=== PATIENT | female | born 2005 | race Caucasian/White ===

== ENCOUNTER 2024-10-23 14:03 | Inpatient (IN) | payer SELFPAY ==
[2024-10-23] VITALS (15 sets, daily range): BP systolic 139–151; BP diastolic 80–99; PULSE 71–108; RESP 14–20; TEMP 36.5–36.9; O2SAT 98–100; BMI 35.7
[2024-10-23 13:22] LABS: Protein:Creat Ratio 402 mg/g CRE (0-200)
[2024-10-23 13:30] LABS: Hematocrit 31.6 % (37-47); Hemoglobin 10.6 g/dL (12.0-15.0); Mean Corp Hgb Conc 33.5 g/dL (32-36); Mean Corpuscular Hgb 28.6 pg (27.0-32.0); Mean Corpuscular Volume 85.4 fL (81-99); Mean Platelet Vol. 10.4 fl (6.2-12.0); Platelet Count 295 K/mm3 (150-450); RBC Distribution Width CV 12.9 % (11.6-14.6); RBC Distribution Width SD 38.5 fl (35.1-43.9); White Blood Count 9.8 K/mm3 (4.4-11.0)
[2024-10-23 13:32] LABS: AST(SGOT) 15 U/L (15-37); Alanine Aminotransfer ALT/SGPT 21 U/L (13-56); Creatinine, Serum 0.55 mg/dL (0.55-1.02); EST Glomerular Filtration Rate 147 mL/min (>60); Est Glom Filt Rate - Afr Amer 178 mL/min (>60); Estimated Creatinine Clearance 186.97 ml/min; Uric Acid 3.5 mg/dL (2.6-6.0)
[2024-10-23 15:09] LABS: Amphetamine Urine NEGATIVE (<1000 ng/mL); Barbiturate Urine VISTA NEGATIVE (< 200 ng/mL); Benzodiazepine Urine VISTA NEGATIVE (< 200 ng/mL); Cocaine Urine VISTA NEGATIVE (< 300 ng/mL); Ecstacy Urine VISTA NEGATIVE (< 500 ng/mL); Methadone Urine VISTA NEGATIVE (< 300 ng/mL); PCP Urine VISTA NEGATIVE (< 25 ng/mL); THC Urine VISTA NEGATIVE (< 50 ng/mL); Vista UDS pH Range 6
[2024-10-23 15:26] LABS: Syphilis Antibodies Non-reactive
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
[2024-10-23] MEDS: miSOPROStol 25 MCG TABLET PO ×3 (15:36→23:34)
[2024-10-24] VITALS (66 sets, daily range): BP systolic 103–145; BP diastolic 51–88; PULSE 60–171; RESP 14–18; TEMP 36.2–36.8; O2SAT 81–100
[2024-10-24] MEDS: miSOPROStol 25 MCG TABLET PO (03:44)
[2024-10-24] MEDS: 0.9% Saline Lock 10 ML Syringe IV (06:09)
[2024-10-24] MEDS: Levothyroxine 100 MCG Tablet PO (06:09)
[2024-10-24] MEDS: 0.9% Normal Saline Single 100 ML IV.SOLN. INTRA-UTER (06:37)
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
[2024-10-24] MEDS: Lactated Ringers 1,000 ML 999 ML IV ×2 (08:33→14:43)
[2024-10-24] MEDS: Oxytocin 15 Units/NS 250ml 15 UNITS/250 ML IV.SOLN 2 UNITS IV (09:12)
[2024-10-24] MEDS: fentaNYL-bupivacaine (epidural) 100 ML BAG EPIDURAL ×2 (15:15→19:32)
[2024-10-24] MEDS: Lactated Ringers 1,000 ML 200 ML IV ×2 (16:28→21:22)
[2024-10-24] MEDS: LACTATED RINGERS 500 ML 999 ML IV (21:58)
[2024-10-24] MEDS: Amnioinfusion- 0.9% NS 1,000 ML IV.SOLN. 1000 ML INTRA-UTER (22:54)
[2024-10-25] VITALS (51 sets, daily range): BP systolic 107–144; BP diastolic 52–76; PULSE 91–129; RESP 16–28; TEMP 36.6–38.1; O2SAT 96–100
[2024-10-25] MEDS: fentaNYL-bupivacaine (epidural) 100 ML BAG EPIDURAL (00:09)
[2024-10-25] MEDS: Lactated Ringers 1,000 ML 200 ML IV (02:50)
[2024-10-25] MEDS: Acetaminophen 500 MG Tablet PO (03:59)
--- NOTE | 2024-10-25 06:07 | OB.VAGDELI_ITS ---
Assessment & Plan (1) Second degree laceration of perineum, delivered, current hospitalization: (2) Vacuum extractor delivery, delivered: (3) Gestational HTN: (4) 37 or more weeks gestation of : Maternal Data Information MAGY Calculator Estimated Delivery Date Method Current WG Current Estimate 11/11/24 Manual 37w 4d Final MAGY: 11/11/24 Gestational age: 37 4/7 Vaginal Delivery Maternal Presentation Maternal Presentation: Medically Indicated Induction Type of Induction: Pitocin, Moralez Bulb, Amniotomy and Cytotec Medical Reason for Induction: Gestational Hypertension Vaginal Delivery Information Procedure Performed: Vacuum Assisted Vaginal Delivery (ooutlet) Station at time of placement: +3 Number of vacuum pulls: 1 Number of vacuum pop offs: 0 Surgeon/Practitioner: Teena Black Date of Procedure: 10/25/24 Pre-Procedure Diagnosis: maternal exhaustion, labor Post-Procedure Diagnosis: same Type of anesthesia: Epidural Drain(s): Other Other drain details: moralez Estimated Blood Loss: 400 Time of Delivery: 05:43 Findings Description of procedure: The patient had been pushing for approximately 3 hours and 15 minutes. Position was ANURADHA. Pelvis was clinically adequate. Epidural was adequate. Moralez catheter was then placed. When she pushed she labia 3 cm and the skull was on the pelvic floor. I discussed with the patient response and alternatives to trial of vacuum-assisted vaginal delivery. Patient desired to proceed. She was very exhausted and losing strength with pushing. The vacuum was placed on the flexion point and the vacuum created 550 mmHg. I pulled with 1 contraction to and there were no pop offs and the vacuum was removed. A vigorous female infant was delivered ANURADHA over a second-degree pe rineal laceration. The remainder the infant was delivered with maternal pushing and gentle traction only in less than 15 seconds. The Pitocin infusion was initiated for active management of the third stage. The cord was clamped and cut after cord pulsations ceased. The infant was attended to by the waiting nursing staff. The placenta was delivered spontaneously and intact. The cervix and vagina were intact. The second-degree perineal laceration was repaired with 3-0 Vicryl suture in a running standard fashion. Sponge and needle counts were correct. A vaginal sweep was completed by me. Presentation: ANURADHA Amniotic Membrane Rupture Type: Artificial Amniotic Fluid Description: Clear (with terminal meconium at delivery) Placental Delivery Description: Spontaneous Placenta Disposition: [facility] Specimen collected: No Cord Vessel Description: 3 Vessels Cord Entanglement: None Cord Gases: ABG and VBG A Gender: Male (Shawano) (1 minute): 8 (5 minute): 10 Delayed Cord Clamping: Yes Immigration Paralegal finishing area operator: No Post Vaginal Deli Medications given after delivery: IV Pitocin Episiotomy Description: None Laceration: 2nd degree Complication Complications: No
[2024-10-25] MEDS: Oxytocin 15 Units/NS 250ml 15 UNITS/250 ML IV.SOLN 83 UNITS IV (06:30)
[2024-10-25] MEDS: Ibuprofen 600 MG Tablet PO ×3 (06:32→20:43)
[2024-10-25] MEDS: Levothyroxine 100 MCG Tablet PO (06:52)
[2024-10-25] MEDS: Acetaminophen 500 MG Tablet 1000 MG PO (16:26)
[2024-10-25] MEDS: Benzocaine/Lanolin/Aloe Vera 85 GM Spray 1 SPRAY TOPICAL (20:43)
[2024-10-26] VITALS (13 sets, daily range): BP systolic 129–143; BP diastolic 77–89; PULSE 88–104; RESP 16–18; TEMP 36.3–36.6; O2SAT 98–99
[2024-10-26] MEDS: Levothyroxine 100 MCG Tablet PO (06:06)
[2024-10-26] MEDS: Ibuprofen 600 MG Tablet PO ×2 (07:44→14:46)
[2024-10-26] MEDS: MEASLES,MUMPS,RUBELLA VACC/PF 0.5 ML SC (07:49)
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
[2024-10-26] MEDS: Acetaminophen 500 MG Tablet 1000 MG PO (11:35)
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
--- NOTE | 2024-10-26 21:35 | CASEMGMT ---
Social Work: social worker delinquency prevention made a referral to [facility] with Zarina due to concerns outlined in assessment. Brandi Beckett, EDGER RUNNER, SUPERVISOR BLASTING
[2024-10-27] MEDS: Acetaminophen 500 MG Tablet 1000 MG PO (00:53)
[2024-10-27 02:30] VITALS: BP 144/87; PULSE 83; RESP 17; TEMP 36.4; O2SAT 98
[2024-10-27 02:33] VITALS: BP 144/87; PULSE 85
[2024-10-27] MEDS: Levothyroxine 100 MCG Tablet PO (06:10)
--- NOTE | 2024-10-27 08:02 | PCM.DC.SUM ---
Providers Date of Admission: 10/23/24 Primary Care Physician: No Primary Care Phys Reason For Visit: VAGINAL DELIVERY Diagnosis Discharge Diagnosis (1) Vacuum extractor delivery, delivered: Status: Acute Code(s): O75.9 - Complication of labor and delivery, unspecified (2) Second degree laceration of perineum, delivered, current hospitalization: Status: Acute Code(s): O70.1 - Second degree perineal laceration during delivery (3) Gestational HTN: Status: Acute Code(s): O13.9 - Gestational [-induced] hypertension without significant proteinuria, unspecified trimester (4) Hypothyroid in , antepartum: Status: Acute Code(s): O99.280 - Endocrine, nutritional and metabolic diseases complicating , unspecified trimester; E03.9 - Hypothyroidism, unspecified Plan PPD 2 VAVD Blood pressures have been 130-140/80's D/C home with follow up in office Medications at Discharge Home Medications levothyroxine 100 mcg capsule 100 mcg PO DAILY 10/23/24 acetaminophen 500 mg tablet 1,000 mg (2 x 500 mg) PO Q6H PRN PRN Pain 1-10 Or Fever #0 tabs 10/27/24 ibuprofen 600 mg tablet 600 mg PO Q6H PRN PRN Pain Score 1-10 #0 tabs 10/27/24 Hospital Course Operations None Procedures None Summary of Care Provided Minutes Spent on Discharge: 15 Hospital Course: Patient had vaginal delivery. Hospital course was uneventful. Physical Exam Narrative Patient seen at bedside. Denies pain. Ambulating and voiding without difficulty. Lochia decreased. Desires discharge home today. Const alert and oriented x3 General Appearance: Negative for in distress HEENT normocephalic Eyes General Eye: normal appearance of both eyes Neck General: normal visual inspection Chest Chest: symmetrical chest wall rise Resp normal respiratory effort and normal air movement Effort and Inspection: symmetric chest movement; Negative for tachypneic Auscultation: clear to auscultation bilaterally Cardio regular rate and regular rhythm Peripheral Pulses: pulses 2+ throughout GI normal to inspection, nondistended, normoactive bowel sounds Narrative: Ice to perineum OB / External & Speculum: vaginal bleeding and other Lochia decreasing Uterus Palpation: uterus fundus firm (Below U) Extremity normal to inspection, full ROM and normal capillary refill Skin no rashes or lesions noted Neuro oriented x3, CN's II-XII intact bilaterally and gait normal Psych mental status grossly normal, thought process normal and activity/motor behavior normal Weight / BMI Weight Weight: 214 lb 15.211 oz Body Mass Index (BMI) 35.7 ABG / Lab / Microbiology Data 10/23/24 13:00 10/23/24 13:00 D/C Instructions Discharge Diet: No restrictions Discharge Activity: Return to Normal Activity, No Restrictions, May Drive, May Shower and May Take a Tub Bath (Warm water only. No bath salts, soaps, bubbles) May resume sexual activity in: 6-8 weeks Weight Bearing Status: Weight bearing as tolerated Call your doctor if you observe: Fever of 101 or Higher, Inability to urinate, Using more than 1 pad per hour, Shortness of breath, Dizziness, Chest pain, Calf discomfort and Uncontrolled pain DC O2, CPAP, BIPAP Needs Home O2 Discharge instructions: No Please Follow Up With: [facility] Rosy [place]STER When: 2 weeks in office or virtual Meaningful Use Info Meaningful Use Meaningful Use Diagnoses (Choose all that apply): None applicable Ischemic Stroke Statin Dosing Therapy Reference: STATIN DOSE THERAPY REFERENCE: * Patients > 75 years receive moderate or high dose statin therapy. * Patients 75 years or YOUNGER should receive HIGH intensity statin dose unless contraindicated. You will be required to document reason for non-treatment if statin daily dose does not meet guidelines. HIGH DOSE STATIN THERAPY DAILY Atorvastatin > than or = to 40 mg Rosuvastatin > than or = to 20 mg Amlodipine + Atorvastatin > than or = to 2.5/40 mg Ezetimibe + Simvastatin 10/80 mg Simvastatin 80mg Discharge Plan Admission Admit Date/Time: 10/23/24 14:03 Primary Reason for Your Visit: Labor and Delivery Attending Provider: Stefani Black Primary Care Provider: Care Physician,No Primary Discharge Orders/Prescriptions Prescriptions: New acetaminophen 500 mg Tablet 1,000 mg PO Q6H PRN PRN (Reason: Pain 1-10 Or Fever) Qty: 0 0RF ibuprofen 600 mg Tablet 600 mg PO Q6H PRN PRN (Reason: Pain Score 1-10) Qty: 0 0RF Continued levothyroxine 100 mcg capsule 100 mcg PO DAILY Referrals / Follow Up: Eleanor Bryan CNM [Med Staff - [facility] Practice Prof] - Care Physician,No Primary [Primary Care Provider] - Disposition Disposition (needs filled in before D/C Order can be placed): Home, Self Care
[2024-10-27] MEDS: Ibuprofen 600 MG Tablet PO (08:23)
[2024-10-27] MEDS: Senna/Docusate Sodium 1 Tablet PO (08:23)
[2024-10-27 08:28] VITALS: BP 135/83; PULSE 83
[2024-10-27 08:30] VITALS: BP 135/83; PULSE 83; RESP 16; TEMP 36.5
[2024-10-27 13:45] VITALS: BP 138/85; PULSE 90; RESP 16; TEMP 36.2
== END 2024-10-27 19:20 | disposition home or self-care (01) | DRG 807 ==
LOC: WPOUT 14:11 → WP 14:11
PROVIDERS: Advanced Practice Midwife; Admitting Provider Obstetrics & Gynecology; Referring Provider Obstetrics & Gynecology; Visit Provider Obstetrics & Gynecology
DX: O75.81 Maternal exhaustion complicating labor and delivery (principal); Z37.0 Single live birth; E03.9 Hypothyroidism, unspecified; O99.324 Drug use complicating childbirth; F12.90 Cannabis use, unspecified, uncomplicated; O13.4 Gestational [pregnancy-induced] hypertension without significant proteinuria, complicating childbirth; O99.284 Endocrine, nutritional and metabolic diseases complicating childbirth; O70.1 Second degree perineal laceration during delivery; Z3A.37 37 weeks gestation of pregnancy
CPT/HCPCS: 59025; 59050; 80307; 82565; 82570; 84156; 84450; 84460; 84550; 85027; 86780; 86850; 86900; 86901; A4216